=== PATIENT | female | born 1990 | race Caucasian/White ===

== ENCOUNTER 2017-10-02 16:06 | Inpatient (IN) | payer OTHER ==
[2017-10-02 16:38] LABS: ADD UMIC YES; UR ASCORBIC ACID 40 mg/dL (NEGATIVE); UR BILIRUBIN (Dip) NEGATIVE (NEGATIVE); UR BLOOD (Dip) NEGATIVE (NEGATIVE); UR CLARITY CLOUDY (CLEAR); UR COLOR YELLOW (YELLOW); UR GLUCOSE (Dip) NEGATIVE (NEGATIVE); UR KETONES (Dip) NEGATIVE (NEGATIVE); UR LEUKOCYTE ESTERASE (Dip) 3+ Leu/ul (NEGATIVE); UR MUCUS MODERATE /HPF (NONE SEEN); UR NITRITE (Dip) NEGATIVE (NEGATIVE); UR RBC 9 /HPF (0-5); UR SPECIFIC GRAVITY (Dip) 1.019 (1.003-1.030); UR SQUAMOUS EPITHELIAL CELL MODERATE /HPF (FEW); UR TOTAL PROTEIN (Dip) 1+ mg/dl (NEGATIVE); UR UROBILINOGEN (Dip) NEGATIVE (NEGATIVE); UR WBC 41 /HPF (0-5)
[2017-10-02 16:40] LABS: ADD MAN DIFF? NO
[2017-10-02 16:42] LABS: WHITE BLOOD COUNT 10.8 10^3/ul (4.8-10.8)
[2017-10-02 16:42] LABS: BASOPHILS % 0.1 % (0.0-2.0); EOSINOPHILS % 0.2 % (0.0-7.0); HEMATOCRIT 35.8 % (37.0-47.0); HEMOGLOBIN 12.6 g/dl (12.0-16.0); IMMATURE GRANS #M 0.04 10^3/ul; IMMATURE GRANS % (M) 0.4 %; LYMPHOCYTES # 1.9 10^3/ul (0.8-2.9); LYMPHOCYTES % 17.8 % (15.0-51.0); MEAN CORPUSCULAR HEMOGLOBIN 31.4 pg (29.0-33.0); MEAN CORPUSCULAR HGB CONC 35.2 g/dl (32.0-37.0); MEAN CORPUSCULAR VOLUME 89.3 fl (82.0-101.0); MEAN PLATELET VOLUME 11.2 fl (7.4-10.4); MONOCYTE # 0.8 10^3/ul (0.3-0.9); MONOCYTES % 7.8 % (0.0-11.0); NEUTROPHIL # 7.9 10^3/ul (1.6-7.5); NEUTROPHILS % 73.7 % (39.0-77.0); PLATELET COUNT 161 10^3/UL (140-415); RED BLOOD COUNT 4.01 10^6/ul (4.20-5.40); RED CELL DISTRIBUTION WIDTH 13.8 % (11.5-14.5)
[2017-10-02 17:04] LABS: ALANINE AMINOTRANSFERASE 16 IU/L (13-69); ALBUMIN 3.5 g/dl (3.3-4.9); ALBUMIN/GLOBULIN RATIO 1.02; ALKALINE PHOSPHATASE 145 IU/L (42-121); ANION GAP 13 (8-16); ASPARTATE AMINO TRANSFERASE 22 IU/L (15-46); BILIRUBIN,INDIRECT 0.3 mg/dl (0-1.1); BILIRUBIN,TOTAL 0.3 mg/dl (0.2-1.3); BLOOD UREA NITROGEN 13 mg/dl (7-20); CARBON DIOXIDE 19 mmol/L (21-31); CHLORIDE 111 mmol/L (97-110); CREATININE 0.72 mg/dl (0.44-1.00); GLUCOSE 87 mg/dl (70-220); POTASSIUM 3.7 mmol/L (3.5-5.1); SODIUM 139 mmol/L (135-144); TOTAL PROTEIN 6.9 g/dl (6.1-8.1); URIC ACID 6.8 mg/dl (3.1-7.9)
[2017-10-02] MEDS: LACTATED RINGER'S 1,000 ML IV (19:48)
[2017-10-03] MEDS: LACTATED RINGER'S 1,000 ML IV ×3 (00:57→16:53)
[2017-10-03] MEDS: PRENATAL VITAMIN PO (09:17)
[2017-10-03 09:19] LABS: ADD MAN DIFF? NO
[2017-10-03 09:25] LABS: BASOPHILS % 0.2 % (0.0-2.0); EOSINOPHILS % 0.4 % (0.0-7.0); HEMATOCRIT 38.1 % (37.0-47.0); HEMOGLOBIN 13.1 g/dl (12.0-16.0); IMMATURE GRANS #M 0.06 10^3/ul; IMMATURE GRANS % (M) 0.6 %; LYMPHOCYTES # 2.2 10^3/ul (0.8-2.9); LYMPHOCYTES % 21.4 % (15.0-51.0); MEAN CORPUSCULAR HEMOGLOBIN 31.2 pg (29.0-33.0); MEAN CORPUSCULAR HGB CONC 34.4 g/dl (32.0-37.0); MEAN CORPUSCULAR VOLUME 90.7 fl (82.0-101.0); MEAN PLATELET VOLUME 11.3 fl (7.4-10.4); MONOCYTE # 0.6 10^3/ul (0.3-0.9); MONOCYTES % 5.5 % (0.0-11.0); NEUTROPHIL # 7.2 10^3/ul (1.6-7.5); NEUTROPHILS % 71.9 % (39.0-77.0); PLATELET COUNT 170 10^3/UL (140-415); RED CELL DISTRIBUTION WIDTH 13.5 % (11.5-14.5)
[2017-10-03 09:56] LABS: ALANINE AMINOTRANSFERASE 27 IU/L (13-69); ALBUMIN 3.4 g/dl (3.3-4.9); ALBUMIN/GLOBULIN RATIO 1.06; ALKALINE PHOSPHATASE 151 IU/L (42-121); ANION GAP 11 (8-16); ASPARTATE AMINO TRANSFERASE 24 IU/L (15-46); BILIRUBIN,INDIRECT 0.5 mg/dl (0-1.1); BILIRUBIN,TOTAL 0.5 mg/dl (0.2-1.3); BLOOD UREA NITROGEN 9 mg/dl (7-20); CALCIUM 8.8 mg/dl (8.4-10.2); CARBON DIOXIDE 24 mmol/L (21-31); CHLORIDE 109 mmol/L (97-110); CREATININE 0.64 mg/dl (0.44-1.00); GLUCOSE 80 mg/dl (70-220); SODIUM 140 mmol/L (135-144); TOTAL PROTEIN 6.6 g/dl (6.1-8.1); URIC ACID 6.5 mg/dl (3.1-7.9)
[2017-10-03 16:40] LABS: COLLECTION PERIOD 24 hrs
[2017-10-03] MEDS: BETAMET NA PHOS/AC(6 MG/ML) 5ML INJ IM (16:52)
[2017-10-03 17:11] LABS: VOLUME 3450 mls
[2017-10-03 17:12] LABS: 24HR URINE TOTAL PROTEIN 517.5 mg/24hrs (42.0-225.0)
[2017-10-03 17:22] LABS: CREATININE,URINE RANDOM 40.16 mg/dl (20-320)
[2017-10-03 17:25] LABS: COLLECTION PERIOD 24 hrs; CREATININE CLEARANCE 150.3 mls/min (84.0-162.0); SCRET 0.64 mg/dl (0.44-1.00); VOLUME 3450 ml/24hrs
[2017-10-04] MEDS: LACTATED RINGER'S 1,000 ML IV ×3 (01:45→18:22)
[2017-10-04] MEDS: PRENATAL VITAMIN PO (09:11)
[2017-10-04 09:25] LABS: ADD MAN DIFF? NO
[2017-10-04 09:35] LABS: WHITE BLOOD COUNT 10.9 10^3/ul (4.8-10.8)
[2017-10-04 09:35] LABS: BASOPHILS % 0.1 % (0.0-2.0); HEMATOCRIT 33.7 % (37.0-47.0); IMMATURE GRANS #M 0.07 10^3/ul; IMMATURE GRANS % (M) 0.6 %; LYMPHOCYTES # 1.5 10^3/ul (0.8-2.9); LYMPHOCYTES % 13.9 % (15.0-51.0); MEAN CORPUSCULAR HGB CONC 35.6 g/dl (32.0-37.0); MEAN CORPUSCULAR VOLUME 89.9 fl (82.0-101.0); MEAN PLATELET VOLUME 11.6 fl (7.4-10.4); MONOCYTE # 0.4 10^3/ul (0.3-0.9); MONOCYTES % 3.8 % (0.0-11.0); NEUTROPHIL # 8.9 10^3/ul (1.6-7.5); NEUTROPHILS % 81.6 % (39.0-77.0); PLATELET COUNT 157 10^3/UL (140-415); RED BLOOD COUNT 3.75 10^6/ul (4.20-5.40); RED CELL DISTRIBUTION WIDTH 13.6 % (11.5-14.5)
[2017-10-04 09:55] LABS: URIC ACID 6.4 mg/dl (3.1-7.9)
[2017-10-04 09:57] LABS: ALANINE AMINOTRANSFERASE 27 IU/L (13-69); ALBUMIN 2.8 g/dl (3.3-4.9); ALBUMIN/GLOBULIN RATIO 0.96; ALKALINE PHOSPHATASE 141 IU/L (42-121); ANION GAP 14 (8-16); ASPARTATE AMINO TRANSFERASE 20 IU/L (15-46); BILIRUBIN,INDIRECT 0.4 mg/dl (0-1.1); BILIRUBIN,TOTAL 0.4 mg/dl (0.2-1.3); BLOOD UREA NITROGEN 7 mg/dl (7-20); CALCIUM 8.6 mg/dl (8.4-10.2); CARBON DIOXIDE 19 mmol/L (21-31); CHLORIDE 110 mmol/L (97-110); CREATININE 0.57 mg/dl (0.44-1.00); GLUCOSE 78 mg/dl (70-220); POTASSIUM 4.1 mmol/L (3.5-5.1); SODIUM 139 mmol/L (135-144); TOTAL PROTEIN 5.7 g/dl (6.1-8.1)
[2017-10-04] MEDS: BETAMET NA PHOS/AC(6 MG/ML) 5ML INJ IM (17:38)
[2017-10-05] MEDS: LACTATED RINGER'S 1,000 ML IV ×3 (02:18→12:00)
[2017-10-05] MEDS ORDERED: OXYTOCIN 30 UNITS/LR 500 ML IV (06:30)
[2017-10-05] MEDS ORDERED: METHYLERGONOVINE 0.2 MG INJ IM (06:30)
[2017-10-05 06:45] LABS: ADD MAN DIFF? NO
[2017-10-05 06:48] LABS: WHITE BLOOD COUNT 10.5 10^3/ul (4.8-10.8)
[2017-10-05 06:48] LABS: BASOPHILS % 0.1 % (0.0-2.0); HEMOGLOBIN 12.3 g/dl (12.0-16.0); IMMATURE GRANS % (M) 1.9 %; LYMPHOCYTES # 1.5 10^3/ul (0.8-2.9); MEAN CORPUSCULAR HEMOGLOBIN 30.8 pg (29.0-33.0); MEAN CORPUSCULAR HGB CONC 34.2 g/dl (32.0-37.0); MEAN PLATELET VOLUME 11.3 fl (7.4-10.4); MONOCYTE # 0.3 10^3/ul (0.3-0.9); MONOCYTES % 3.1 % (0.0-11.0); NEUTROPHIL # 8.5 10^3/ul (1.6-7.5); NEUTROPHILS % 80.9 % (39.0-77.0); PLATELET COUNT 146 10^3/UL (140-415); RED CELL DISTRIBUTION WIDTH 13.8 % (11.5-14.5)
[2017-10-05] MEDS: MAGNESIUM SULFATE 4 GM/100 ML 100 ML IVPB (06:58)
[2017-10-05 07:09] LABS: ALANINE AMINOTRANSFERASE 24 IU/L (13-69); ALBUMIN 3.3 g/dl (3.3-4.9); ALBUMIN/GLOBULIN RATIO 0.94; ALKALINE PHOSPHATASE 140 IU/L (42-121); ANION GAP 12 (8-16); ASPARTATE AMINO TRANSFERASE 24 IU/L (15-46); BILIRUBIN,INDIRECT 0.3 mg/dl (0-1.1); BILIRUBIN,TOTAL 0.3 mg/dl (0.2-1.3); BLOOD UREA NITROGEN 9 mg/dl (7-20); CALCIUM 8.9 mg/dl (8.4-10.2); CARBON DIOXIDE 24 mmol/L (21-31); CHLORIDE 109 mmol/L (97-110); CREATININE 0.57 mg/dl (0.44-1.00); GLUCOSE 98 mg/dl (70-220); INR 0.83; PROTIME 11.5 Sec (11.9-14.9); PT RATIO 0.9; SODIUM 141 mmol/L (135-144); TOTAL PROTEIN 6.8 g/dl (6.1-8.1); URIC ACID 5.7 mg/dl (3.1-7.9)
[2017-10-05 07:10] LABS: PARTIAL THROMBOPLASTIN TIME 22.8 Sec (25.0-35.0)
[2017-10-05] MEDS: MAGNESIUM SULFATE 20 GM/500 ML 500 ML IV ×2 (07:25→17:10)
[2017-10-05] MEDS: PRENATAL VITAMIN PO (09:00)
[2017-10-05] MEDS: MISOPROSTOL 25 MCG CAPSULE PO ×2 (12:20→16:54)
[2017-10-05 13:39] LABS: MAGNESIUM 4.7 mg/dl (1.7-2.5)
[2017-10-05] MEDS: AMPICILLIN 2 GM/NS (PMX) 100 ML IV (14:28)
[2017-10-05] MEDS: ACETAMINOPHEN 325 MG TAB PO (16:51)
[2017-10-05] MEDS: AMPICILLIN 1 GM/NS (PMX) 50 ML IV ×2 (18:20→22:45)
[2017-10-05] MEDS: LACTATED RINGER'S 500 ML IV (19:10)
[2017-10-05 19:31] LABS: MAGNESIUM 5.6 mg/dl (1.7-2.5)
[2017-10-05 21:53] LABS: RAPID PLASMA REAGIN NONREACTIVE (NR)
[2017-10-05] MEDS: ONDANSETRON 4 MG INJ IV (22:33)
[2017-10-06] MEDS: MISOPROSTOL 25 MCG CAPSULE PO ×2 (00:33→04:58)
[2017-10-06 01:35] LABS: MAGNESIUM 5.8 mg/dl (1.7-2.5)
[2017-10-06] MEDS: AMPICILLIN 1 GM/NS (PMX) 50 ML IV ×5 (02:23→21:49)
[2017-10-06] MEDS: LACTATED RINGER'S 500 ML IV (02:23)
[2017-10-06] MEDS: LACTATED RINGER'S 1,000 ML IV ×2 (02:30→19:00)
[2017-10-06] MEDS: MAGNESIUM SULFATE 20 GM/500 ML 500 ML IV ×3 (02:47→23:27)
[2017-10-06] MEDS: ONDANSETRON 4 MG INJ IV (04:29)
[2017-10-06] MEDS: ACETAMINOPHEN 325 MG TAB PO ×2 (04:59→05:46)
[2017-10-06] MEDS: OXYTOCIN 30 UNITS/LR 500 ML IV (10:09)
[2017-10-06 11:48] LABS: ADD MAN DIFF? NO
[2017-10-06 11:50] LABS: WHITE BLOOD COUNT 11.7 10^3/ul (4.8-10.8)
[2017-10-06 11:50] LABS: BASOPHILS % 0.2 % (0.0-2.0); EOSINOPHILS % 0.1 % (0.0-7.0); HEMATOCRIT 33.9 % (37.0-47.0); IMMATURE GRANS #M 0.18 10^3/ul; IMMATURE GRANS % (M) 1.5 %; LYMPHOCYTES # 1.4 10^3/ul (0.8-2.9); MEAN CORPUSCULAR HGB CONC 35.4 g/dl (32.0-37.0); MEAN CORPUSCULAR VOLUME 90.4 fl (82.0-101.0); MONOCYTE # 0.6 10^3/ul (0.3-0.9); MONOCYTES % 5.1 % (0.0-11.0); NEUTROPHIL # 9.5 10^3/ul (1.6-7.5); NEUTROPHILS % 81.1 % (39.0-77.0); NUCLEATED RED BLOOD CELLS% 0.2 /100WBC (0.0-0.0); PLATELET COUNT 144 10^3/UL (140-415); RED BLOOD COUNT 3.75 10^6/ul (4.20-5.40); RED CELL DISTRIBUTION WIDTH 13.6 % (11.5-14.5)
[2017-10-06 12:13] LABS: ALANINE AMINOTRANSFERASE 34 IU/L (13-69); ALBUMIN 2.7 g/dl (3.3-4.9); ALKALINE PHOSPHATASE 144 IU/L (42-121); ANION GAP 13 (8-16); ASPARTATE AMINO TRANSFERASE 30 IU/L (15-46); BILIRUBIN,INDIRECT 0.7 mg/dl (0-1.1); BILIRUBIN,TOTAL 0.7 mg/dl (0.2-1.3); BLOOD UREA NITROGEN 6 mg/dl (7-20); CALCIUM 6.1 mg/dl (8.4-10.2); CARBON DIOXIDE 24 mmol/L (21-31); CHLORIDE 102 mmol/L (97-110); CREATININE 0.57 mg/dl (0.44-1.00); GLUCOSE 81 mg/dl (70-220); LIPASE 737 U/L (23-300); POTASSIUM 3.6 mmol/L (3.5-5.1); SODIUM 135 mmol/L (135-144); TOTAL PROTEIN 5.7 g/dl (6.1-8.1); URIC ACID 5.8 mg/dl (3.1-7.9)
[2017-10-06 12:15] LABS: MAGNESIUM 6.3 mg/dl (1.7-2.5)
[2017-10-06 12:18] LABS: AMYLASE 268 U/L (11-123)
[2017-10-06 19:18] LABS: MAGNESIUM 6.6 mg/dl (1.7-2.5)
[2017-10-06] MEDS: LABETALOL HCL 20MG INJ IV ×2 (21:17→21:57)
[2017-10-07] MEDS: LIDOCAINE 1% (MPF) 30 ML INJ INJ (01:27)
[2017-10-07] MEDS: CARBOPROST 250 MCG INJ IM (01:42)
[2017-10-07] MEDS: MISOPROSTOL 200 MCG TAB PR ×2 (01:45→02:06)
[2017-10-07 02:01] LABS: MAGNESIUM 6.7 mg/dl (1.7-2.5)
[2017-10-07] MEDS: OXYTOCIN 30 UNITS/LR 500 ML IV (02:03)
[2017-10-07] MEDS: LABETALOL HCL 20MG INJ IV ×2 (03:55→06:20)
[2017-10-07] MEDS ORDERED: HYDROCODONE/APAP (5/325) TAB PO (05:30)
[2017-10-07] MEDS ORDERED: OXYTOCIN 30 UNITS/LR 500 ML IV (05:30)
[2017-10-07] MEDS ORDERED: CARBOPROST 250 MCG INJ IM (05:30)
[2017-10-07] MEDS ORDERED: ACETAMINOPHEN 325 MG TAB PO (05:30)
[2017-10-07] MEDS ORDERED: MISOPROSTOL 200 MCG TAB PR (05:30)
[2017-10-07] MEDS ORDERED: DIBUCAINE 1% 30 GM OINT PR (05:30)
[2017-10-07] MEDS: IBUPROFEN 600 MG TAB PO ×4 (06:00→23:34)
[2017-10-07] MEDS: WITCH HAZEL/GLYCERIN PAD PR (06:15)
[2017-10-07] MEDS: BENZOCAINE 20% 56 ML SPRAY TOP (06:15)
[2017-10-07] MEDS: LACTATED RINGER'S 1,000 ML IV* ×3 (06:16→19:58)
[2017-10-07] MEDS: MAGNESIUM SULFATE 20 GM/500 ML 500 ML IV ×2 (08:40→18:25)
[2017-10-07 08:51] LABS: MAGNESIUM 6.6 mg/dl (1.7-2.5)
[2017-10-07] MEDS: SENNA/DOCUSATE NA (8.6MG/50MG) TAB PO ×2 (09:00→20:52)
[2017-10-07] MEDS: LABETALOL 200 MG TAB PO ×2 (10:45→20:52)
[2017-10-07 12:45] LABS: MAGNESIUM 6.8 mg/dl (1.7-2.5)
[2017-10-07 19:05] LABS: MAGNESIUM 6.3 mg/dl (1.7-2.5)
[2017-10-08 01:27] LABS: MAGNESIUM 6.3 mg/dl (1.7-2.5)
[2017-10-08] MEDS: IBUPROFEN 600 MG TAB PO ×3 (05:48→17:24)
[2017-10-08] MEDS: LABETALOL 200 MG TAB PO ×3 (08:41→23:56)
[2017-10-08 09:07] LABS: ADD MAN DIFF? NO
[2017-10-08 09:11] LABS: WHITE BLOOD COUNT 10.3 10^3/ul (4.8-10.8)
[2017-10-08 09:11] LABS: BASOPHILS % 0.1 % (0.0-2.0); EOSINOPHILS % 0.4 % (0.0-7.0); HEMATOCRIT 30.2 % (37.0-47.0); HEMOGLOBIN 10.2 g/dl (12.0-16.0); LYMPHOCYTES # 2.1 10^3/ul (0.8-2.9); MEAN CORPUSCULAR HEMOGLOBIN 31.4 pg (29.0-33.0); MEAN CORPUSCULAR HGB CONC 33.8 g/dl (32.0-37.0); MEAN CORPUSCULAR VOLUME 92.9 fl (82.0-101.0); MEAN PLATELET VOLUME 11.2 fl (7.4-10.4); MONOCYTE # 0.7 10^3/ul (0.3-0.9); MONOCYTES % 6.4 % (0.0-11.0); NEUTROPHIL # 7.4 10^3/ul (1.6-7.5); NEUTROPHILS % 72.3 % (39.0-77.0); PLATELET COUNT 125 10^3/UL (140-415); RED BLOOD COUNT 3.25 10^6/ul (4.20-5.40); RED CELL DISTRIBUTION WIDTH 14.4 % (11.5-14.5)
[2017-10-08] MEDS: SENNA/DOCUSATE NA (8.6MG/50MG) TAB PO ×2 (09:34→21:27)
[2017-10-09] MEDS: IBUPROFEN 600 MG TAB PO ×4 (00:43→18:29)
[2017-10-09] MEDS: LABETALOL 200 MG TAB PO ×3 (07:33→22:05)
[2017-10-09] MEDS: DIPHTH/TET/ACEL PERTUSS (ADULT) 0.5 ML VIAL IM* (09:26)
[2017-10-09] MEDS: SENNA/DOCUSATE NA (8.6MG/50MG) TAB PO ×2 (09:49→21:04)
[2017-10-09 12:53] LABS: ADD MAN DIFF? NO
[2017-10-09 12:59] LABS: WHITE BLOOD COUNT 13.9 10^3/ul (4.8-10.8)
[2017-10-09 12:59] LABS: BASOPHILS % 0.1 % (0.0-2.0); EOSINOPHILS # 0.1 10^3/ul (0.0-0.5); EOSINOPHILS % 0.9 % (0.0-7.0); HEMATOCRIT 31.2 % (37.0-47.0); HEMOGLOBIN 10.4 g/dl (12.0-16.0); LYMPHOCYTES % 14.4 % (15.0-51.0); MEAN CORPUSCULAR HEMOGLOBIN 31.5 pg (29.0-33.0); MEAN CORPUSCULAR HGB CONC 33.3 g/dl (32.0-37.0); MEAN CORPUSCULAR VOLUME 94.5 fl (82.0-101.0); MEAN PLATELET VOLUME 10.2 fl (7.4-10.4); MONOCYTE # 0.7 10^3/ul (0.3-0.9); MONOCYTES % 5.3 % (0.0-11.0); NEUTROPHIL # 10.9 10^3/ul (1.6-7.5); NEUTROPHILS % 78.7 % (39.0-77.0); PLATELET COUNT 141 10^3/UL (140-415); RED CELL DISTRIBUTION WIDTH 14.3 % (11.5-14.5)
[2017-10-09 13:28] LABS: ALANINE AMINOTRANSFERASE 41 IU/L (13-69); ALKALINE PHOSPHATASE 97 IU/L (42-121); ANION GAP 11 (8-16); ASPARTATE AMINO TRANSFERASE 35 IU/L (15-46); BILIRUBIN,INDIRECT 0.4 mg/dl (0-1.1); BILIRUBIN,TOTAL 0.4 mg/dl (0.2-1.3); BLOOD UREA NITROGEN 11 mg/dl (7-20); CALCIUM 8.7 mg/dl (8.4-10.2); CARBON DIOXIDE 25 mmol/L (21-31); CHLORIDE 109 mmol/L (97-110); CREATININE 0.67 mg/dl (0.44-1.00); GLUCOSE 76 mg/dl (70-220); POTASSIUM 4.4 mmol/L (3.5-5.1); SODIUM 141 mmol/L (135-144); URIC ACID 5.2 mg/dl (3.1-7.9)
[2017-10-09] MEDS: NIFEdipine (XL) 30 MG TAB PO ×2 (14:48→21:04)
[2017-10-10] MEDS: IBUPROFEN 600 MG TAB PO ×3 (01:06→12:57)
[2017-10-10] MEDS: LABETALOL 200 MG TAB PO ×2 (06:25→14:22)
[2017-10-10] MEDS: SENNA/DOCUSATE NA (8.6MG/50MG) TAB PO (09:39)
[2017-10-10] MEDS: NIFEdipine (XL) 30 MG TAB PO (09:40)
== END 2017-10-10 16:23 | disposition home or self-care (01) | DRG 775 ==
LOC: OBT 16:06 → L-D 10-05 06:15 → PP1 10-07 05:12 → L-D 16:08 → OBT 18:00 → L-D 18:00 → PP1 20:00
PROC: 10E0XZZ Delivery of Products of Conception, External Approach (ICD-10-PCS; principal; 2017-10-07)
PROC: 0HQ9XZZ Repair Perineum Skin, External Approach (ICD-10-PCS; 2017-10-07)
PROC: 3E033VJ Introduction of Other Hormone into Peripheral Vein, Percutaneous Approach (ICD-10-PCS; 2017-10-07)
DX: O60.14X0 Preterm labor third trimester with preterm delivery third trimester, not applicable or unspecified (principal); O14.14 Severe pre-eclampsia complicating childbirth; O70.0 First degree perineal laceration during delivery; Z3A.34 34 weeks gestation of pregnancy; Z37.0 Single live birth
CPT/HCPCS: 76705; 76815; 76818; 80053; 81001; 82150; 82575; 83690; 83735; 84156; 84560; 85025; 85610; 85730; 86592; 86850; 86900; 86901; 87086; 88307; 99464